=== PATIENT | male | born 1970 | race Caucasian/White ===

== ENCOUNTER 2017-01-17 10:20 | Day surgery (SDC) | payer OTHER ==
[~2017-01-17] VITALS: Ht 180.3 cm; Wt 88.0 kg
[2017-01-17] VITALS (11 sets, daily range): BP systolic 85–154; BP diastolic 76–97; PULSE 64–86; RESP 17–27; Ht 180.3 cm; Wt 88.0 kg
[~2017-01-17 10:20] MED LIST: ATROPINE 1 MG/10 ML SYRINGE IV PRN; DIPHENHYDRAMINE 50 MG INJ IV PRN; EPHEDrine SULFATE 50 MG/5 ML SYG IV PRN; FENTAnyl 50 MCG/ML VIAL IV PRN; HYDROmorphONE (0.2 MG/ML) 10ML SYG IV PRN; LABETALOL HCL 20MG INJ IV PRN; MEPERIDINE 25 MG INJ IV PRN; MIDAZOLAM 1 MG/ML 2 ML INJ IV PRN; ONDANSETRON 4 MG INJ IV PRN; ONDANSETRON 4 MG INJ ONE; OXYCODONE/ACETAMINOPHEN (5/325) TAB PO PRN; SEVOFLURANE 15 MIN ONE; hydrALAzine 20 MG INJ IV PRN; morphine (1 MG/ML) 10ML SYRINGE IV PRN
[2017-01-17] MEDS ORDERED: MIDAZOLAM 1 MG/ML 2 ML INJ ONE (11:13)
[2017-01-17] MEDS ORDERED: ROCURONIUM 50 MG INJ ONE (11:13)
[2017-01-17] MEDS ORDERED: GLYCOPYRROLATE 0.4 MG INJ ONE (11:13)
[2017-01-17] MEDS ORDERED: NEOSTIGMINE 3 MG/3 ML SYRINGE ONE (11:13)
[2017-01-17] MEDS ORDERED: PROPOFOL 20 ML ONE (11:13)
[2017-01-17] MEDS ORDERED: LIDOCAINE 2% (SDV) 5 ML INJ ONE (11:13)
[2017-01-17] MEDS ORDERED: FENTAnyl 50 MCG/ML VIAL ONE (11:13)
[2017-01-17] MEDS ORDERED: SOD CHLORIDE 0.9% 1,000 ML IV SCH (11:30)
[2017-01-17] MEDS ORDERED: CEFAZOLIN 2 GM/50 ML (PMX) 50 ML IVPB SCH (11:30)
[2017-01-17] MEDS ORDERED: SUCCINYLCHOLINE CHLORIDE 100 MG/5 ML SYG IV ONE (11:55)
[2017-01-17] MEDS ORDERED: SUGAMMADEX SODIUM 200 MG/2 ML VIAL IV ONE (11:55)
[2017-01-17] MEDS ORDERED: BUPIVACAINE 0.25% (MPF) 30 ML INJ ONE (12:09)
[2017-01-17] MEDS ORDERED: POLYMYXIN/BACITRACIN 1L IRRIG IRR ONE (12:49)
[2017-01-17] MEDS ORDERED: BUPIVACAINE 0.25% (MPF) 30 ML INJ INJ ONE (12:49)
[2017-01-17] MEDS ORDERED: LABETALOL HCL 20MG INJ ONE (13:21)
[2017-01-17] MEDS ORDERED: CEFAZOLIN 1 GM INJ ONE (13:45)
[2017-01-17] MEDS ORDERED: hydrALAzine 20 MG INJ ONE (14:02)
[2017-01-17] MEDS: morphine (1 MG/ML) 10ML SYRINGE IV PRN ×2 (14:20→14:38)
--- NOTE | 2017-01-17 14:27 | OPR ---
Date/Time of Note Date/Time of Note DATE: 01/17/17 TIME: 14:07 Operative Report Procedure Date: Jan 17, 2017 Preoperative Diagnosis large incarcerated left inguinal hernia Postoperative Diagnosis large incarcerated left inguinal hernia and absence of a left testicle Operation Performed 1. open incarcerated left inguinal hernia repair with mesh ultrapro hernia system large mesh 2. therapeutic injection of subcutaneous marcaine cpt code 84602 Surgeon see signature line Anesthesia Type: general Estimated Blood Loss: 0 - 10 ml's Specimen: none Grafts/Implants large ultrapro hernia system mesh Complications: no Indications This is a 46-year-old male with a large incarcerated left inguinal hernia. He required surgical care. Risks alternatives benefits and percent were discussed the patient. Initial complication including but not limited to bleeding infection mesh infection pain need for reoperation and possible were discussed the patient. Patient expresses understanding and consents to the operation. Operative\Procedure Findings Absence of the left testicle. Procedure Description Patient is taken to the OR prepped and draped in usual sterile fashion. Surgical timeout was performed. IV antibiotics were given. Left inguinal oblique incision is made with a 10 blade. Dissection cautery was carried onto the hernia. External oblique fascia is opened with a 15 blade. This incision is extended medioinferiorly laterosuperiorly with Metzenbaum scissors. On further inspection there is a large amount of omental hernia that is protruding and incarcerated to the indirect space into the scrotal sac. This was reduced manually. However there is no evidence of a cord structure on the left testicle. Further exploration was performed in the left scrotum. No evidence of any remnant testicle was discovered no further cord structures were found the incarcerated hernia contents was also explored and there is no evidence of any testicle in this area. The procedure was progressed along by implanting the distal portion dalteparin system mesh in the indirect space was fixed to the inguinal ligament from the pubic tubercle along the shelving edge of the inguinal limit with a running 0 Prolene. The distal portion was secured to the internal oblique with interrupted 3-0 Vicryl. Onlay mesh was secured in a similar fashion from the pubic tubercle along the shelving of the inguinal ligament with a running 0 Prolene. The onlay mesh was secured to the internal bleeding with interrupted 3-0 Vicryl. External oblique fascia is closed with a running 3-0 Vicryl. Obi's fascia is closed with interrupted 3-0 Vicryl. Skin is closed using skin mariana. Therapeutic sub-contains Marcaine is injected throughout the incision site. Dressings were applied. Roland LOUISE Jan 17, 2017 14:22
[2017-01-17] MEDS ORDERED: HYDROCODONE/APAP (5/325) TAB PO ONE (14:30)
--- NOTE | 2017-01-17 15:50 | PN ---
Date/Time of Note Date/Time of Note DATE: 01/17/17 TIME: 15:48 Assessment/Plan VTE Prophylaxis VTE Prophylaxis Intervention: SCD's Lines/Catheters IV [facility]from [facility] Peripheral IV Assessment/Plan Assessment/Plan 46 yo male who knew he had undescended left testes. He underwent surgical repair of his left inguinal hernia. He had known intraabdominal left testes. Recommendation was made to the patient regarding a need for a consultation with a urologist to evaluate and manage his left undescended testes. This was discussed with the patient after he had recovered from anesthesia. Subjective 24 Hr Interval Summary Free Text/Dictation no issues Exam/Review of Systems Vital Signs Vitals Vital Signs Date Time Temp Pulse Resp B/P Pulse Ox O2 Delivery O2 Flow Rate FiO2 01/17/17 15:19 98.2 66 18 85/ 96 01/17/17 14:49 Room Air Exam dressings intact Medications Medications Current Medications Sodium Chloride (NS) 1,000 ml @ 75 mls/hr [id number] IV ; Start 01/17/17 at 11:30 ; Stop 01/17/17 at 23:00 Roland LOUISE Jan 17, 2017 15:50
== END 2017-01-17 15:55 | disposition home or self-care (01) ==
LOC: EDSEX 10:20 → SDS 10:20
PROVIDERS: ATTEND Surgery
DX: K40.30 Unilateral inguinal hernia, with obstruction, without gangrene, not specified as recurrent (principal)
CPT/HCPCS: 49507; C1781; J0690; J2250; J2270; J2405; J3010; Z7512; Z7610; J0360; J2710; J7999

== ENCOUNTER 2017-06-06 09:44 | Day surgery (SDC) | END 2017-06-06 13:22 | disposition home or self-care (01) ==